=== PATIENT | male | born 1965 | race Caucasian/White ===

== ENCOUNTER 2018-11-07 05:13 | Day surgery (SDC) | payer OTHER ==
[~2018-11-07] VITALS: Ht 177.8 cm; Wt 93.0 kg
[~2018-11-07 05:13] MED LIST: PREDNISOLONE ACE5 ML OPHTHALMIC; SYNTHROID125 MC1 PO
[2018-11-07 06:48] VITALS: BP 110/69
--- NOTE | 2018-11-07 08:05 | EKG ---
[address] [address] ELECTROCARDIOGRAM REPORT Name: KELSI HUTCHINSON Room #: 150-1 [facility]#: [id number] ������������������ Admission: 11/07/18 ������������������ Attend Phys: Alonzo Yeung MD Discharge: ������������������ Date of : 63 Report #: [id number] ����������������������������������������������������������������� [id number] THIS REPORT FOR: //name// [facility] Test Date: 2018-11-07 Test Time: 06:16:31 Pat Name: KELSI HUTCHINSON Department: Room: 150 1 Gender: M Guide Escort: amos : 1965 Requested By: Alonzo Yeung Order Number: [id number] MD: Waldemar Manzo Measurements Intervals Bone Gap Rate: 59 P: 57 IN: 152 QRS: -36 QRSD: 116 T: 53 QT: 433 QTc: 429 Interpretive Statements Sinus rhythm Nonspecific IVCD with LAD No previous ECG available for comparison Electronically Signed On 11-07-2018 8:05:34 CDT by Waldemar Manzo [email or web address] ��������������������������������������������� <ELECTRONICALLY SIGNED> ���������������������������������������� By: Waldemar Manzo MD, [facility] ��������������������������������������������� 11/07/18 0805 0616 0616 Waldemar Manzo MD, FACC /EPI
--- NOTE | 2018-11-18 06:17 | O ---
[facility] [place] [address] OPERATIVE REPORT Name: KELSI HUTCHINSON Room #: DEP [facility].#: [id number] Admission: 11/07/18 ������������������ Attend Phys: Alonzo Yeung MD Discharge: 11/07/18 ������������������ Date of : 63 Report #: [id number] THIS REPORT FOR: //name// CC: Denilson Yeung SURGEON: Alonzo Yeung MD STONEMASON HELPER: None. PREOPERATIVE DIAGNOSIS: Nasolacrimal duct obstruction, left side. POSTOPERATIVE DIAGNOSIS: Nasolacrimal duct obstruction, left side OPERATIONS PERFORMED: 1. Incisional dacryocystorhinostomy. 2. Nasal surgical video endoscopy. 3. Silicone intubation. ANESTHESIA: General. COMPLICATIONS: None. INDICATIONS FOR PROCEDURE: This patient has an acquired nasolacrimal duct obstruction with chronic tearing and discharge. The current procedures are undertaken in order to improve the patient's level of comfort and visual clarity and to reduce the risk of recurrent infection. Informed consent was obtained to include but not limited to the potential risk for loss of vision, bleeding, infection, failure to improve the problem, scarring and the potential need for further surgery. DESCRIPTION OF OPERATION: The patient was taken to the operating room, where general anesthesia was administered. The medial canthal area was then generously infiltrated with 2% Xylocaine with epinephrine mixed with equal parts of 0.75% Marcaine with Wydase. The same anesthetic mixture was then used to anesthetize the lateral wall of the nose. The middle meatus was then packed with Afrin-soaked Cottonoids. The patient was subsequently prepped and draped in the usual sterile fashion. A skin-marking pen was then used to outline an incision over the anterior lacrimal crest inferiorly in the medial canthal area. The incision was then made with a 15 blade. The dissection was then carried down through the soft tissue until the periosteum was identified. Hemostasis was achieved with diligent monopolar cautery. The periosteum was then incised over the anterior [facility] [address] [place] [address] OPERATIVE REPORT Name: KELSI HUTCHINSON Room #: DEP [facility]..#: [id number] Admission: 11/07/18 ������������������ Attend Phys: Alonzo Yeung MD Discharge: 11/07/18 ������������������ Date of : 63 Report #: [id number] lacrimal crest and then gently reflected laterally out of the lacrimal sac fossa. The lacrimal sac was retracted and the thin bone of the lacrimal sac fossa was gently infractured with a hemostat. Multiple rongeur bites were then used to create an osteotomy that was approximately 1.5 cm in diameter. The nasal mucosa was then injected with the same anesthetic mixture used at the beginning of the case. The nasal mucosa was then incised and an anteriorly hinged nasal mucosal flap made. The flap was drawn out of the field with interrupted 4-0 chromic sutures. The puncta were then dilated with a double-ended punctum dilator. Cooney tubes were then passed into the lacrimal sac and its margins were identified. A large anteriorly hinged lacrimal sac flap was subsequently created. The Cooney tubes were passed into the nose on a groove director transnasally. The anterior lacrimal sac flaps and nasal mucosal flaps were closed with interrupted 4-0 chromic sutures. The nasal surgical video endoscope was then brought into the field. The ostium was inspected and found to not be obstructed by the middle turbinate. The ostium was anterior and inferior to the root of the turbinate. There was no evidence of any septal obstruction of the newly created ostium. The subcutaneous structures around the wound were then closed with multiple interrupted 4-0 chromic sutures. The skin was closed with interrupted 6-0 plain gut sutures. The Cooney tubes were then secured to themselves with 3 square throws. The Cooney tubes were then secured to the lateral wall of the nose with a 5-0 Prolene suture. Antibiotic steroid drops were then placed on the surface of the eye and an antibiotic ointment on the incision. Two eye pads were then taped in place. The patient was transported to the recovery area, having tolerated the procedure well with no anesthetic or operative complications being noted. ��������������������������������������������� <ELECTRONICALLY SIGNED> ���������������������������������������� By: Alonzo Yeung MD ��������������������������������������������� 11/18/18 0617 0801 0832 Alonzo Yeung MD /nt
== END 2018-11-07 09:45 | disposition home or self-care (01) ==
LOC: TBA 05:13 → OR 05:13 → TBA 05:14 → OR 09:45
DX: H04.552 Acquired stenosis of left nasolacrimal duct (principal); Z85.850 Personal history of malignant neoplasm of thyroid; Z90.89 Acquired absence of other organs; Z98.890 Other specified postprocedural states; Z79.899 Other long term (current) drug therapy
CPT/HCPCS: 50010; 50101; 50386; 50398; 51636; 51777; 56528; 56531; 62110; 62900; 70005